=== PATIENT | male | born 1980 | race Hispanic/Latino ===

== ENCOUNTER 2021-05-03 03:22 | Emergency (ER) | payer SELFPAY ==
[~2021-05-03] VITALS: Ht 172.7 cm; Wt 119.3 kg
[2021-05-03] MEDS ORDERED: CEPHALEXIN500 M1 PO ×2 (04:14→04:25)
[2021-05-03 04:36] VITALS: BP 162/91
[2021-05-03 07:16] LABS: CLARITY,URINE CLOUDY (CLEAR); COLOR,URINE YELLOW (YELLOW); KETONES,URINE TRACE (NEGATIVE); LEUKOCYTE ESTERASE ,URINE LARGE (NEGATIVE); NITRITE,URINE NEGATIVE (NEGATIVE); PROTEIN,URINE DIPSTICK 2+ (NEGATIVE)
[2021-05-03 07:17] LABS: BACTERIA,URINE MANY /HPF; RBC,URINE >50 /HPF (0-5); URINE UROBILINOGEN 0.2 mg/dL (0.2 - 1); WBC,URINE (MAN) >50 /HPF (0-5)
[2021-05-03 07:18] LABS: EPITHELIAL CELLS,URINE FEW /LPF
== END 2021-05-03 04:36 | disposition home or self-care (01) ==
LOC: FSED 03:50
DX: R30.0 Dysuria (principal); N39.0 Urinary tract infection, site not specified; R73.9 Hyperglycemia, unspecified
CPT/HCPCS: 36415; 81001; 81003; 82948; 87086; 87186; 99282